=== PATIENT | male | born 1990 | race Caucasian/White ===

== ENCOUNTER 2018-02-27 15:27 | Emergency (ER) | payer OTHER ==
[~2018-02-27] VITALS: Ht 165.1 cm; Wt 63.5 kg
[~2018-02-27 15:27] MED LIST: Bactrim Ds Tab1 EACH PO; CEPH500 PO; DOXY100 PO; HYDACE5 PO; HYDR1TAB94 PO; OXYC5 PO; Percocet 5-3251 EACH PO; SULTRIDS PO; TYLENOL PO; Vibramycin100 MG PO
[2018-02-27] MEDS ORDERED: [UNRECOGNIZED DRUG - OTHER] TOP (16:10)
== END 2018-02-27 16:16 | disposition home or self-care (01) ==
LOC: ER 15:27
DX: S90.822A Blister (nonthermal), left foot, initial encounter (principal); S90.821A Blister (nonthermal), right foot, initial encounter; J45.909 Unspecified asthma, uncomplicated; F17.200 Nicotine dependence, unspecified, uncomplicated; X58.XXXA Exposure to other specified factors, initial encounter
CPT/HCPCS: 99282

== ENCOUNTER 2018-04-09 05:12 | Emergency (ER) | payer OTHER ==
[~2018-04-09] VITALS: Ht 165.1 cm; Wt 61.2 kg
[~2018-04-09 05:12] MED LIST changes: +[UNRECOGNIZED DRUG - OTHER] TOP
== END 2018-04-09 05:38 | disposition left against medical advice (07) ==
LOC: ER 05:12
DX: S61.412A Laceration without foreign body of left hand, initial encounter (principal); W26.8XXA Contact with other sharp object(s), not elsewhere classified, initial encounter; J45.909 Unspecified asthma, uncomplicated; F17.210 Nicotine dependence, cigarettes, uncomplicated; F17.290 Nicotine dependence, other tobacco product, uncomplicated
CPT/HCPCS: 99281

== ENCOUNTER 2020-03-24 14:29 | Emergency (ER) | payer OTHER ==
[~2020-03-24] VITALS: Ht 172.7 cm; Wt 65.8 kg
[2020-03-24] MEDS ORDERED: Amoxicillin875 MG PO (14:43)
== END 2020-03-24 14:50 | disposition home or self-care (01) ==
LOC: ER 14:29
DX: T70.0XXA Otitic barotrauma, initial encounter (principal); X58.XXXA Exposure to other specified factors, initial encounter
CPT/HCPCS: 99283

== ENCOUNTER 2021-02-24 22:23 | Emergency (ER) | payer OTHER ==
[~2021-02-24] VITALS: Ht 165.1 cm; Wt 63.5 kg
[~2021-02-24 22:23] MED LIST changes: +Amoxicillin875 MG PO
== END 2021-02-25 00:05 | disposition home or self-care (01) ==
LOC: ER 22:23
DX: S61.412A Laceration without foreign body of left hand, initial encounter (principal); F17.210 Nicotine dependence, cigarettes, uncomplicated; W45.8XXA Other foreign body or object entering through skin, initial encounter
CPT/HCPCS: 12001; 99282-25

== ENCOUNTER 2022-04-14 04:06 | Emergency (ER) | payer OTHER ==
[~2022-04-14] VITALS: Ht 165.1 cm; Wt 68.5 kg
== END 2022-04-14 05:22 | disposition home or self-care (01) ==
LOC: ER 04:06
DX: S93.602A Unspecified sprain of left foot, initial encounter (principal); J45.909 Unspecified asthma, uncomplicated; F17.210 Nicotine dependence, cigarettes, uncomplicated; V03.02XA Pedestrian on skateboard injured in collision with car, pick-up truck or van in nontraffic accident, initial encounter; Y93.51 Activity, roller skating (inline) and skateboarding; Y92.9 Unspecified place or not applicable
CPT/HCPCS: 73630; 99283-25; A9270

== ENCOUNTER 2022-05-01 09:29 | Emergency (ER) | payer OTHER ==
[~2022-05-01] VITALS: Ht 165.1 cm; Wt 70.3 kg
[2022-05-01 10:42] LABS: BASOPHILS ABSOLUTE AUTO 0.01 K/mm3 (0.00-0.23); BASOPHILS PERCENT AUTO 0 % (0-2); EOSINOPHILS ABSOLUTE AUTO 0.03 K/mm3 (0.00-0.68); EOSINOPHILS PERCENT AUTO 1 % (0-6); Hemoglobin 14.2 g/dL (13.5-17.5); IMMATURE GRAN PERCENT AUTO 0 % (0-1); LYMPHOCYTES ABSOLUTE AUTO 1.34 K/mm3 (0.84-5.20); LYMPHOCYTES PERCENT AUTO 37 % (21-46); MONOCYTES PERCENT AUTO 14 % (4-13); Mean Corpuscular HGB 31.3 pg (26.0-34.0); Mean Corpuscular HGB Conc 34.6 g/dL (31.5-36.5); Mean Corpuscular Volume 91 fL (80-100); Mean Platelet Volume 9.4 fL (9.1-12.4); NEUTROPHILS ABSOLUTE AUTO 1.74 K/mm3 (1.96-9.15); NEUTROPHILS PERCENT AUTO 48 % (41-73); Platelet Count 179 K/mm3 (150-400); RDW Coefficient Variation 12.2 % (11.7-14.2); RDW Standard Deviation 40.7 fL (35.1-46.3); Red Blood Cell Count 4.53 M/mm3 (4.30-5.90); White Blood Cell Count 3.62 K/mm3 (4.00-11.30)
[2022-05-01 10:59] LABS: Albumin, Blood 3.8 g/dL (3.4-5.0); Albumin/Globulin Ratio 1.2 (0.8-1.8); Bilirubin, Total 0.2 mg/dL (0.1-1.0); Bun/Creatinine Ratio 15.1 (12.0-20.0); Calcium, Blood 9.3 mg/dL (8.5-10.1); Creatinine, Blood 0.86 mg/dL (0.60-1.20); Globulin, Blood 3.1 g/dL (2.2-4.0); Magnesium, Blood 2.1 mg/dL (1.6-2.4); Potassium, Blood 4.1 mmol/L (3.5-5.5); Total Protein, Blood 6.9 g/dL (6.4-8.2)
[2022-05-01 11:14] LABS: Influenza A, PCR NEGATIVE (NEGATIVE); Influenza B, PCR NEGATIVE (NEGATIVE); Resp Syncytial Virus, PCR NEGATIVE (NEGATIVE)
[2022-05-01 11:20] LABS: SARS-Cov-2 (COVID-19) PCR, MMC POSITIVE (NEGATIVE)
== END 2022-05-01 14:55 | disposition home or self-care (01) ==
LOC: ER 09:29
PROVIDERS: Physician Assistant
DX: U07.1 COVID-19 (principal); J45.909 Unspecified asthma, uncomplicated; Z53.21 Procedure and treatment not carried out due to patient leaving prior to being seen by health care provider
CPT/HCPCS: 0241U; 36415; 80053; 83735; 85025; 99283

== ENCOUNTER → 2022-11-09 | Outpatient (CLI) | payer OTHER ==
[2022-11-11 07:08] LABS: HBSAG SCREEN Negative (Negative); HCV ANTIBODY <0.1 (0.0-0.9); HIV AB/P24 AG SCREEN Non Reactive (Non Reactive)
== END | disposition home or self-care (01) ==
LOC: LAB SHORT 16:45
PROVIDERS: Registered Nurse Community Health
DX: Z11.3 Encounter for screening for infections with a predominantly sexual mode of transmission (principal); Z20.2 Contact with and (suspected) exposure to infections with a predominantly sexual mode of transmission
CPT/HCPCS: 86592; 86803; 87340; 87389